=== PATIENT | male | born 1990 | race Caucasian/White ===

== ENCOUNTER 2020-10-31 09:05 | Day surgery (SDC) | payer OTHER, SELFPAY ==
[2020-10-31 09:33] VITALS: BP 125/74; PULSE 63; RESP 16; TEMP 36.4; O2SAT 96; BMI 31.9
[2020-10-31] MEDS: Ciprofloxacin 0.3% 2.5ml Bottle 1 DRP (10:20)
--- NOTE | 2020-10-31 10:38 | PCM.DC.EAR ---
Discharge Diet: No Restrictions Discharge Activity: No Restrictions Additional Activity Instructions:: Ear drops....5 drops each ear twice a day for 2 days Allergies/Adverse Reactions: Allergies No Known Allergies Allergy (Verified 10/31/20 09:33) Medications to take at Discharge Amitriptyline HCl 50 mg PO QHS 10/24/20 Infliximab [Remicade] 3 mg IV .[id number] 10/24/20 Primary Care Physician: [facility],[place] [Primary Care Provider] - Test Results: Test results from this visit will be discussed in further detail at your follow-up appointment, if applicable.
--- NOTE | 2020-10-31 10:39 | PCM.OPRPT ---
Report of Operation Date of Procedure: 10/31/20 Pre-Operative Diagnosis: chronic serous otitis media Post-Operative Diagnosis: same Surgery/Procedure Performed:: Bilateral myringotomy with tubes Description of Surgical Findings:: bilateral serous effusions Type of Anesthesia:: General Anesthesiologist: Johnny Nielsen Specimen's removed: none Drains: none Estimated Blood Loss (mL): none Description of Procedure: The patient was taken to the operating room on 10/31/2020. The patient was placed in the supine position on the operating room table. The patient was given sufficient general anesthesia. The operating microscope was used throughout the entire case. A speculum was inserted into the patient's left ear. Cerumen was removed using a curette. An incision was placed in the anterior inferior quadrant of the tympanic membrane. A serous effusion was suctioned using a #5 suction. A T tube was placed without difficulty. Antibiotic drops were instilled into the patient's ear. Next, a speculum was inserted into the patient's right ear. Cerumen was removed using a curette. An incision was placed in the anterior inferior quadrant of the tympanic membrane. A serous effusion was suctioned out using a #5 suction. A T tube was placed without difficulty. Antibiotic drops were instilled into the patient's ear. The patient was then awoken. They were brought to the recovery room in stable condition. Blood loss none. replacement none sponge needle and instrument counts correct at the end of the procedure.
[2020-10-31 10:46] VITALS: BP 125/74; BP 128/85; PULSE 96; RESP 16; TEMP 36.3; O2SAT 94
[2020-10-31 11:00] VITALS: BP 123/82; BP 125/74; PULSE 81; RESP 16; O2SAT 94
[2020-10-31] MEDS: Acetaminophen 325 MG Tablet 650 MG PO (11:01)
[2020-10-31] MEDS: Ondansetron ODT 4 MG Tablet PO (11:05)
[2020-10-31 11:12] VITALS: BP 117/82; BP 125/74; PULSE 85; RESP 16; TEMP 36.4; O2SAT 95
[2020-10-31 11:40] VITALS: BP 125/74
== END 2020-10-31 11:43 | disposition home or self-care (01) ==
LOC: SDC 09:06 → AC 09:15
PROVIDERS: Referring Provider Otolaryngology; Visit Provider Otolaryngology
PROC: (CPT 69436; principal; 2020-10-31 10:25)
DX: H65.23 Chronic serous otitis media, bilateral (principal); Z20.828 Contact with and (suspected) exposure to other viral communicable diseases; G47.30 Sleep apnea, unspecified; K50.90 Crohn's disease, unspecified, without complications; H90.0 Conductive hearing loss, bilateral
CPT/HCPCS: 69436; 87426; C9803; J7120